=== PATIENT | male | born 1950 | race Caucasian/White ===

== ENCOUNTER → 2017-10-15 | Outpatient (CLI) | payer MEDICARE, BC ==
--- NOTE | 2017-10-15 13:48 | US ---
EXAM DESCRIPTION: Soft Tissue,Extremity CLINICAL HISTORY: 67 years Male, palpable abnormality behind left knee COMPARISON: None. TECHNIQUE: Real-time sonographic images of the soft tissue of the knee are obtained. FINDINGS: Examination demonstrates a well-circumscribed anechoic fluid collection in the popliteal fossa measuring 6.1 x 1.8 x 3.5 cm. IMPRESSION: Anechoic fluid collection in the left popliteal fossa probably represents Bernal's cyst. Electronically signed by: Austen Powell MD 10/15/2017 1:47 PM CDT
== END ==
LOC: US 10:54
PROVIDERS: ATTEND Family Medicine
DX: M71.22 Synovial cyst of popliteal space [Baker], left knee (principal)

== ENCOUNTER → 2017-10-23 | Outpatient (CLI) | payer MEDICARE, BC | LOC: GMAJ 12:04 | PROVIDERS: ATTEND Family Medicine | DX: Z12.5 Encounter for screening for malignant neoplasm of prostate (principal) ==

== ENCOUNTER → 2018-12-23 | Outpatient (CLI) | payer MEDICARE, BC | LOC: GMAJ 10:53 | PROVIDERS: ATTEND Family Medicine | DX: Z12.5 Encounter for screening for malignant neoplasm of prostate (principal); Z79.899 Other long term (current) drug therapy ==

== ENCOUNTER 2019-09-27 02:07 | Emergency (ER) | payer MEDICARE, BC ==
[2019-09-27] MEDS ORDERED: ASPIRIN TABLET 325 MG TAB PO ONE (02:48)
--- NOTE | 2019-09-27 02:51 | ED.PDOC ---
History of Present Illness - General Time Seen by Provider: 09/27/19 02:29 Source: patient, family Exam Limitations: no limitations - History of Present Illness Initial Comments: The patient is a 69-year-old male presented emergency room secondary to 2 minutes of a very mild expressive aphasia that occurred around midnight. It completely resolved after that. He and his were looking at real estate on the website when it occurred. He denies taking any sleeping pills or any Viagra. No vision problems. No swallowing problems. No weakness or sensory changes at the time. No history of any strokes or TIAs. He does have a history of ocular migraines. He did not take any migraine medicine today and did not have a headache. No syncope or near syncope. No chest pain. He has had a history of increased frequency of palpitations. This has been ongoing over the last year or 2. Timing/Duration: momentarily Severity: mild Improving Factors: nothing Worsening Factors: nothing Associated Symptoms: denies symptoms Allergies/Adverse Reactions: Allergies NO KNOWN ALLERGY Allergy (Verified 09/27/19 03:49) Home Medications: Ambulatory Orders Metoprolol Succinate [Metoprolol Succinate ER] 12.5 mg PO DAILY #30 tab 09/27/19 Review of Systems - Review of Systems Constitutional: States: no symptoms reported EENTM: States: no symptoms reported Respiratory: States: no symptoms reported Cardiology: States: no symptoms reported Gastrointestinal/Abdominal: States: no symptoms reported Genitourinary: States: no symptoms reported Musculoskeletal: States: other - The patient does report frequent leg cramps. Skin: States: no symptoms reported Neurological: States: see HPI Endocrine: States: no symptoms reported All other Systems: No Change from Baseline Family Medical History - Family History Mother Family History: No Known Physical Exam - Physical Exam General Appearance: Alert, Anxious, Comfortable, No apparent distress Eye Exam: bilateral normal Ears, Nose, Throat: hearing grossly normal, normal ENT inspection Neck: full range of motion, supple Respiratory: lungs clear, normal breath sounds, no respiratory distress, no accessory muscle use Cardiovascular/Chest: normal peripheral pulses, regular rate, rhythm, no edema, other - Frequent irregular beats Peripheral Pulses: radial,right: 2+, radial,left: 2+, dorsalis pedis,right: 2+, dorsalis pedis,left: 2+ Gastrointestinal/Abdominal: non tender, soft Rectal Exam: deferred Back Exam: no CVA tenderness, no vertebral tenderness Extremity: normal range of motion, non-tender, normal inspection, no pedal edema, no calf tenderness, normal capillary refill 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 Skin Exam: normal color Progress - Progress Progress: 09/27/19 06:12 The patient is a 69-year-old male presenting with very mild expressive aphasia for 2 minutes. Source of this is possibly a TIA but could also include very mild seizure activity given his history of ocular migraines or transient perfusion delay due to frequent PVCs. I would recommend that the patient go on a full dose aspirin daily. I am also going to write the patient for very low- dose metoprolol at 12.5 mg extended release per day to help reduce PVCs hopefully. I do want the patient to follow back up with his primary care doctor towards the end of next week. Vital signs and neurological status have remained stable and back to normal since his arrival. ER warnings are given for any worsening. [email or web address] lee [id number] - Results/Orders Results/Orders: 09/27/19 02:46 Telemetry .CONTINUOUS Vital Signs-Tilt PRN 09/27/19 03:00 EKG STAT EKG shows normal sinus rhythm at 74 bpm. Mild right axis deviation. Normal R wave progression. Frequent PVCs. No definitive ST segment or T wave changes indicative of acute ischemia. Normal QT interval. Single view chest x-ray shows no acute pathology. Head CT without contrast shows chronic microangiopathic changes. See report for details. Laboratory Results - last 24 hr 09/27/19 09/27/19 09/27/19 02:50 02:50 02:50 WBC 4.1 L RBC 4.45 L Hgb 15.3 Hct 43.8 MCV 98.5 H MCH 34.3 H MCHC 34.8 RDW 12.8 Plt Count 166 MPV 8.4 Absolute Neuts (auto) 1.90 Absolute Lymphs (auto) 1.50 Absolute Monos (auto) 0.60 Absolute Eos (auto) 0.10 Absolute Basos (auto) 0.00 Neutrophils % 47.1 Lymphocytes % 35.8 Monocytes % 13.4 H Eosinophils % 2.7 Basophils % 1.0 PT 10.2 INR 1.03 PTT (SP) 22.6 D-Dimer, Quantitative < 131 L Sodium 139 Potassium 3.8 Chloride 103 Carbon Dioxide 28 Anion Gap 11.8 L BUN 21 H Creatinine 0.90 BUN/Creatinine Ratio 23.3 H Random Glucose 97 Serum Osmolality 280.4 Calcium 9.1 Magnesium 2.2 Total Bilirubin 0.6 AST 21 ALT 22 Alkaline Phosphatase 78 Creatine Kinase 109 CK-MB (CK-2) 3.9 CK-MB (CK-2) % Not Reportable Troponin I < 0.02 B-Natriuretic Peptide 7.9 Serum Total Protein 7.1 Albumin 4.3 Globulin 2.8 Albumin/Globulin Ratio 1.5 TSH 3.03 Urine Color Urine Appearance Urine pH Ur Specific [place] Urine Protein Urine Glucose (UA) Urine Ketones Urine Blood Urine Nitrite Urine Bilirubin Urine Urobilinogen Ur Leukocyte Esterase Urine RBC Urine WBC Ur Epithelial Cells Urine Bacteria 09/27/19 09/27/19 04:02 05:06 WBC RBC Hgb Hct MCV MCH MCHC RDW Plt Count MPV Absolute Neuts (auto) Absolute Lymphs (auto) Absolute Monos (auto) Absolute Eos (auto) Absolute Basos (auto) Neutrophils % Lymphocytes % Monocytes % Eosinophils % Basophils % PT INR PTT (SP) D-Dimer, Quantitative Sodium Potassium Chloride Carbon Dioxide Anion Gap BUN Creatinine BUN/Creatinine Ratio Random Glucose Serum Osmolality Calcium Magnesium Total Bilirubin AST ALT Alkaline Phosphatase Creatine Kinase 149 CK-MB (CK-2) 3.6 CK-MB (CK-2) % Not Reportable Troponin I < 0.02 B-Natriuretic Peptide Serum Total Protein Albumin Globulin Albumin/Globulin Ratio TSH Urine Color Yellow Urine Appearance Clear Urine pH 7.0 Ur Specific [place] 1.020 Urine Protein Negative Urine Glucose (UA) Negative Urine Ketones Negative Urine Blood Trace-intact H Urine Nitrite Negative Urine Bilirubin Negative Urine Urobilinogen 0.2 Ur Leukocyte Esterase Negative Urine RBC 0-1 Urine WBC 0 Ur Epithelial Cells 0 Urine Bacteria 0 Departure - Departure Clinical Impression: Expressive aphasia, Frequent PVCs Disposition: Discharge to Home or Self Care Condition: Fair Instructions: Ventricular Premature Beats Diet: regular diet Activity: increase activity as tolerated Referrals: Collins Bell MD [Primary Care Provider] - 1-5 Days Prescriptions: Metoprolol Succinate [Metoprolol Succinate ER] 12.5 mg PO DAILY #30 tab Home Medications: Ambulatory Orders Metoprolol Succinate [Metoprolol Succinate ER] 12.5 mg PO DAILY #30 tab 09/27/19 Additional Instructions: The patient is a 69-year-old male presenting with very mild expressive aphasia for 2 minutes. Source of this is possibly a TIA but could also include very mild seizure activity given his history of ocular migraines or transient perfusion delay due to frequent PVCs. I would recommend that the patient go on a full dose aspirin daily. I am also going to write the patient for very low- dose metoprolol at 12.5 mg extended release per day to help reduce PVCs hopefully. I do want the patient to follow back up with his primary care doctor towards the end of next week. Vital signs and neurological status have remained stable and back to normal since his arrival. ER warnings are given for any worsening.
--- NOTE | 2019-09-27 04:27 | RAD ---
EXAM DESCRIPTION: Chest,1 View CLINICAL HISTORY: 69 years Male, PVCs COMPARISON: None TECHNIQUE: Single AP chest radiograph. FINDINGS: Clear lungs. No pneumothorax or pleural effusion. Normal cardiomediastinal contour. Normal osseous structures. IMPRESSION: 1. No acute cardiopulmonary process. Electronically signed by: Gerard Jiménez MD 09/27/2019 4:25 AM CDT
--- NOTE | 2019-09-27 04:30 | CT ---
EXAM: CT head without IV contrast CLINICAL DATA: transient expressive aphasia TECHNICAL DATA: Multiple axial CT images of the brain were performed followed by sagittal and coronal reconstructed images. The CT study is performed according to ALARA (as low as reasonably achievable) or ALARA/IMAGE GENTLY, with automatic adjustment of mA and/or kV according to patient size. Performed on: 09/27/2019 at 4:10 AM Comparisons: None. FINDINGS: There is no evidence of mass, acute mass effect or midline shift. There are no acute extra-axial fluid collections. There is no evidence of acute intracranial hemorrhage. The cerebral sulci and ventricles are prominent consistent with age-related volume loss. There are scattered areas of decreased attenuation within the subcortical and periventricular white matter most likely due to mild chronic microangiopathy. There is no significant mucosal thickening of the paranasal sinuses. The mastoid air cells are clear. The orbital contents are grossly unremarkable. No acute osseous abnormalities are identified. No focal soft tissue abnormalities are identified. IMPRESSION: 1. There is no evidence of acute intracranial pathology. 2. Mild age-related cerebral volume loss with findings most consistent with mild chronic microangiopathy. Electronically signed by: Mary Roman DO 09/27/2019 4:28 AM CDT
[2019-09-27 05:31] VITALS: TEMP 97.4
[2019-09-27 06:50] VITALS: BP 160/97; O2SAT 98
== END 2019-09-27 06:35 | disposition home or self-care (01) ==
LOC: ER 02:07
DX: R47.01 Aphasia (principal); I49.3 Ventricular premature depolarization

== ENCOUNTER → 2019-10-01 | Outpatient (CLI) | payer MEDICARE, BC | DX: R00.2 Palpitations (principal) ==

== ENCOUNTER → 2019-10-14 | Outpatient (CLI) | payer MEDICARE, BC ==
--- NOTE | 2019-10-14 10:39 | MRI ---
EXAM DESCRIPTION: Brain w/o Contrast CLINICAL HISTORY: TRANSIENT CEREBRAL ISCHEMIC ATTACK UNSPECIFIED COMPARISON: CT head 09/27/2019 TECHNIQUE: Non contrast MRI of the brain is performed according to our usual protocol including multiplanar multi sequence technique. FINDINGS: No hemorrhage, mass effect, restricted diffusion, or acute infarction is present. There is normal configuration of the ventricles and sulci. Moderate generalized volume loss. Mild to moderate T2/FLAIR hyperintensities in the supratentorial white matter. No abnormal extra-axial fluid collections are present. Normal flow voids are present. The calvarium is intact. Visualized paranasal sinuses and mastoid air cells are clear. IMPRESSION: 1. No acute intracranial abnormality. 2. Senescent changes. Electronically signed by: Wes Ruff MD 10/14/2019 10:37 AM CDT
== END ==
LOC: MRI 08:51
PROVIDERS: ATTEND Family Medicine
DX: G45.9 Transient cerebral ischemic attack, unspecified (principal); G31.1 Senile degeneration of brain, not elsewhere classified

== ENCOUNTER → 2019-10-15 | Outpatient (CLI) | payer MEDICARE, BC ==
--- NOTE | 2019-10-15 09:20 | US ---
EXAM DESCRIPTION: Carotid Duplex CLINICAL HISTORY: 69 years Male, TRANSIENT CEEREBRAL ISCHEMIC ATTACK COMPARISON: None. TECHNIQUE: Carotid Doppler ultrasound was performed bilaterally. FINDINGS: Mild atherosclerotic disease is noted in the bilateral carotid bulb and internal carotid artery. Peak systolic velocities are 43.8 cm/s, 50.6 cm/s and 73.2 cm/s in the proximal, mid and distal portions of the right internal carotid artery. Peak systolic velocities are 47.4 cm/s, 64.4 cm/s and 75.9 cm/s in the proximal, mid and distal portions of the left internal carotid artery. ICA to CCA ratio is 0.9 on the right and 0.9 on the left. Antegrade flow is noted in the bilateral vertebral arteries. IMPRESSION: No hemodynamically significant stenosis is noted in the bilateral carotid arteries. Electronically signed by: Gloria England MD 10/15/2019 9:18 AM CDT
== END ==
LOC: US 09:00
PROVIDERS: ATTEND Family Medicine
DX: G45.9 Transient cerebral ischemic attack, unspecified (principal)

== ENCOUNTER → 2020-01-29 | Outpatient (CLI) | payer MEDICARE, BC | LOC: GMAJ 11:51 | PROVIDERS: ATTEND Family Medicine | DX: Z12.5 Encounter for screening for malignant neoplasm of prostate (principal) ==

== ENCOUNTER → 2020-02-10 | Outpatient (CLI) | payer MEDICARE, BC | LOC: GMAJ 11:00 | PROVIDERS: ATTEND Family Medicine | DX: R41.9 Unspecified symptoms and signs involving cognitive functions and awareness (principal) ==

== ENCOUNTER → 2020-02-11 | Outpatient (CLI) | payer MEDICARE, BC ==
--- NOTE | 2020-02-11 15:34 | MRI ---
EXAM DESCRIPTION: Brain w/o Contrast: MRI. CLINICAL HISTORY: UNSPEC. SYMPTOMS AND SIGNS INVOLVING COGNITIVE FUNCTIONS COMPARISON: MRI scan of the brain without contrast October 2019. TECHNIQUE: Multiplanar, high-field MRI unit, multiple diffusion sequences, multiple conventional sequences without contrast. FINDINGS: Bilateral periventricular confluence FLAIR and T2-weighted signal in the periventricular white matter at the level of the frontal horns of the lateral ventricles and the ventricles in the bilateral parietal and occipital lobes. This extends into the bilateral oliver radiata. Stable since the prior study. Bilateral scattered foci of hyperintense T2 and FLAIR signal in the subcortical white matter frontal parietal and occipital lobes. Stable since the prior study with relative sparing of the temporal lobes.. No hemorrhage, no cerebral edema, no midline shift.. No diffusion restriction. Focal hyperintense T2 and FLAIR signal in the right anterior basal ganglia, showing no interval change. No hemorrhage, no cerebral edema, no mass-effect no diffusion restriction. Normal signal in the brainstem and cerebellar hemispheres. No diffusion restriction.. Concordance of the diffusion and non-diffusion sequences in the remainder of the brain with no diffusion restriction. Cortical sulci, ventricles, and other CSF spaces, and the subdural spaces are physiologic for the patient's age. No effacement or displacement. No midline shift. No extra-axial hemorrhage. Normal flow signal void in the major vessels of the [place], and the venous sinuses. IACs are symmetric bilaterally. Normal signal in the bilateral mastoid air cells. No mass effect in the bilateral cerebellopontine angles. Pituitary gland occupies all of the sella. Base of the cerebellar tonsils is at the level, or slightly above the foramen magnum. Minimal mucoperiosteal thickening is symmetric in the paranasal sinuses.. The bony calvarium is intact. IMPRESSION: 1. No acute or subacute intra-axial extra-axial hemorrhage, or CVA. No mass effect or midline shift bilaterally. Cerebral White matter changes are most likely related to aging or cerebral microvascular disease. Stable since the prior study. 2. Normal noncontrast MRI diffusion study with no interval change since the prior study. Electronically signed by: Lester Alex MD 02/11/2020 3:32 PM CDT
== END ==
LOC: MRI 10:02
PROVIDERS: ATTEND Family Medicine
DX: R41.9 Unspecified symptoms and signs involving cognitive functions and awareness (principal); R90.82 White matter disease, unspecified

== ENCOUNTER → 2020-04-27 | Outpatient (CLI) | payer MEDICARE, BC | LOC: RESP 09:55 | PROVIDERS: ATTEND Internal Medicine Cardiovascular Disease | DX: I49.3 Ventricular premature depolarization (principal) ==